=== PATIENT | female | born 1995 | race Two or more races ===

== ENCOUNTER 2018-03-16 13:00 | Inpatient (IN) | payer OTHER ==
[~2018-03-16] VITALS: Ht 162.6 cm; Wt 90.3 kg
[2018-03-16] MEDS ORDERED: LIDOCAINE 1% PF 30 ML VIAL. INJ PRN (13:15)
[2018-03-16] MEDS ORDERED: fentaNYL PF VIAL 100 MCG/2 ML VIAL IV PRN ×2 (13:15)
[2018-03-16] MEDS ORDERED: TERBUTALINE 1 MG/ML VIAL. SQ PRN (13:15)
[2018-03-16] MEDS ORDERED: BUTORPHANOL 2 MG/ML VIAL. IV PRN (13:15)
[2018-03-16] MEDS ORDERED: OXYTOCIN 30 UNIT/500 ML PREMIX 500 ML IV PRN ×3 (13:15→20:45)
[2018-03-16] MEDS ORDERED: 0.9 % SODIUM CHLORIDE 10 ML DISP.SYRIN. IV PRN ×2 (13:15→20:45)
[2018-03-16 13:52] LABS: BASO % 0 % (0-3); EOS # 0.1 x10^3/uL (0.0-0.7); EOS % 1 % (0-3); HEMATOCRIT 31.3 % (36.0-47.0); HEMOGLOBIN 10.3 g/dL (12.0-15.5); LYMPH # 1.4 x10^3/uL (1.0-4.8); LYMPH % 16 % (24-48); MEAN CORPUSCULAR HEMOGLOBIN 25 pg (25-35); MEAN CORPUSCULAR HGB CONC 33 g/dL (31-37); MEAN CORPUSCULAR VOLUME 76 fL (79-100); MONO # 0.6 x10^3/uL (0.0-1.1); MONO % 8 % (0-9); NEUT # 6.2 x10^3uL (1.8-7.7); NEUT % 75 % (31-73); PLATELET COUNT 163 x10^3/uL (140-400); RED BLOOD COUNT 4.09 x10^6/uL (3.50-5.40); RED CELL DISTRIBUTION WIDTH 15.2 % (11.5-14.5); WHITE BLOOD COUNT 8.3 x10^3/uL (4.0-11.0)
[2018-03-16 13:56] LABS: BILIRUBIN,URINE NEGATIVE (NEG); CLARITY,URINE CLEAR; COLOR,URINE YELLOW; NITRITE,URINE NEGATIVE (NEG); PROTEIN,URINE NEGATIVE (NEG-TRACE)
[2018-03-16] MEDS: IV RINGERS,LACTATED 1000ML 1,000 ML IV SCH ×2 (14:14→18:15)
--- NOTE | 2018-03-16 14:48 | PDOC1 ---
OB - History Hx of Present Care: Good Care Ultrasounds: Normal mid trimester US Obstetrical Complications: None Medical Complications: None Past Family/Social History * Past Medical, Surgical, Family and Obstetric Histories reviewed from chart. Rubella: Immune RPR/VDRL: Negative GBS Status: Negative HBsAG: Negative OB - Chief Complaint & HPI Date of Admission: Date of Admission: Mar 16, 2018 at 13:00 Chief Complaint/History : 3 Para: 2 EGA: 38 Reason for admission: active labor Admission Nurse Assessment Rev: Yes OB - Admission Exam Physical Exam HEENT: Normal Heart: Regular Rate Lungs: Clear Abdomen: Gravid, Non tender, Soft Extremities: Edema Reflexes: Normal Cervical Dilatation: 4cm Effacement: 75% Station: -3 Membranes: Intact Heart Rate: Normal Accelerations: Accelerations Present Decelerations: No decelerations Contractions on Admission: 6-10 Minutes Apart Text A: 38 wks IUP Active labor P: Admit for labor management. LUIZ ARCEO Jr, MD Mar 16, 2018 14:48
[2018-03-16 18:17] VITALS: BP 113/69
--- NOTE | 2018-03-16 20:40 | PDOC ---
VAGINAL DELIVERY DATE DATE: 03/16/18 TIME: 20:38 : 3 Para: 3 EGA: 38 VAGINAL DELIVERY: VTX VACCUM ASSISTED: No PLACENTA: Spontaneous 8/9 SEX: Male WEIGHT Weight [ pending ] Nuchal Cord: Yes, Times 2 Amniotic Fluid: Clear PAIN: Natural EPISIOTOMY: No EXTENSION: No EBL 400 ml COMPLICATIONS none CONDITION pt. stable Signs of Intrauterine Infectio: None Shoulder Dystocia: No LUIZ ARCEO Jr, MD Mar 16, 2018 20:40
[2018-03-16] MEDS ORDERED: ZOLPIDEM 5 MG TABLET. PO PRN (20:45)
[2018-03-16] MEDS ORDERED: HYDROCORTISONE 1% TOPICAL OINTMENT 30GM TUBE. TP PRN (20:45)
[2018-03-16] MEDS ORDERED: PHENYLEPH/MINERAL OIL/PETROLAT RECTAL OINTMENT 28GM TUBE. RC PRN (20:45)
[2018-03-16] MEDS ORDERED: IBUPROFEN 400 MG TABLET. PO PRN (20:45)
[2018-03-16] MEDS ORDERED: oxyCODONE/APAP 5/325 1 TAB TABLET PO PRN (20:45)
[2018-03-16] MEDS ORDERED: ACETAMINOPHEN 325 MG TABLET. PO PRN (20:45)
[2018-03-16] MEDS ORDERED: DOCUSATE SODIUM 100 MG CAPSULE. PO PRN (20:45)
[2018-03-16] MEDS ORDERED: MMR per PROTOCOL. MC PRN (20:45)
[2018-03-16] MEDS ORDERED: SIMETHICONE 80 MG TAB.CHEW PO PRN (20:45)
[2018-03-16] MEDS ORDERED: diphenhydrAMINE HCL 25 MG CAPSULE PO PRN (20:45)
[2018-03-16] MEDS ORDERED: MAG HYDROX/ALUMINUM HYD/SIMETH 30 ML ORAL.SUSP PO PRN (20:45)
[2018-03-16] MEDS ORDERED: BENZOCAINE 20% TOPICAL AEROSOL SPRAY 57GM CAN. TP PRN (20:45)
[2018-03-16] MEDS ORDERED: MAGNESIUM HYDROXIDE 2,400 MG/30 ML ORAL.SUSP. PO PRN (20:45)
[2018-03-16] MEDS: IBUPROFEN 400 MG TABLET. PO PRN (22:55)
--- NOTE | 2018-03-16 23:30 | NUR ---
Ambulated to bathroom. Pericare and teaching done. Able to void without any difficulty. Taken to room 333 via wheelchair. report and handoff to nurse.
[2018-03-17] VITALS: BP 116/67
[2018-03-17 03:20] VITALS: BP 101/65
[2018-03-17 06:20] VITALS: BP 110/62
[2018-03-17] MEDS: IBUPROFEN 400 MG TABLET. PO PRN (07:33)
[2018-03-17] MEDS ORDERED: FERROUS SULFATE 325 MG TABLET. PO SCH (08:00)
[2018-03-17 08:31] LABS: BASO # 0.1 x10^3/uL (0.0-0.2); BASO % 1 % (0-3); EOS # 0.1 x10^3/uL (0.0-0.7); EOS % 1 % (0-3); HEMATOCRIT 30.3 % (36.0-47.0); HEMOGLOBIN 10.2 g/dL (12.0-15.5); LYMPH % 19 % (24-48); MEAN CORPUSCULAR HEMOGLOBIN 26 pg (25-35); MEAN CORPUSCULAR HGB CONC 34 g/dL (31-37); MEAN CORPUSCULAR VOLUME 76 fL (79-100); MONO % 9 % (0-9); NEUT # 7.7 x10^3uL (1.8-7.7); NEUT % 71 % (31-73); PLATELET COUNT 163 x10^3/uL (140-400); RED BLOOD COUNT 3.97 x10^6/uL (3.50-5.40); RED CELL DISTRIBUTION WIDTH 15.5 % (11.5-14.5); WHITE BLOOD COUNT 10.9 x10^3/uL (4.0-11.0)
[2018-03-17 11:19] VITALS: BP 112/68
--- NOTE | 2018-03-17 14:28 | PDOC ---
Provider Note Provider Note Doing well VSS Uterus NTTP FU in AM ADIS HERNANDEZ MD Mar 17, 2018 14:28
[2018-03-17 17:00] VITALS: BP 106/66
[2018-03-17] MEDS ORDERED: DIPHTH,PERTUSS(ACELL),TET TOX 0.5 ML DISP.SYRIN. VAX IM ONE (18:45)
[2018-03-17 23:00] VITALS: BP 119/69
[2018-03-18] MEDS: IBUPROFEN 400 MG TABLET. PO PRN (05:20)
[2018-03-18 05:30] VITALS: BP 124/83
--- NOTE | 2018-03-18 08:25 | PDOC3 ---
OB DISCHARGE SUMMARY DATE OF ADMISSION: 03/16/18 DATE OF DISCHARGE: 03/18/18 REASON FOR ADMISSION: Onset of labor PROCEDURES: Ultrasound INTRAPARTUM PROCEDURES: Spontanous Vag Deliv PROCEDURES: None OPERATIONS: None DISCHARGE DIAGNOSIS: Term Delivered DISCHARGE INFORMATION: Activity, Diet HOSPITAL COURSE Unremarkable CONDITION AT DISCHARGE Stable ADIS HERNANDEZ MD Mar 18, 2018 08:25
[2018-03-18] MEDS ORDERED: NAPR-514 PO (08:27)
[2018-03-18] MEDS ORDERED: HYDR-3164 PO (08:27)
[2018-03-18 11:30] VITALS: BP 110/68
[2018-03-18 16:00] VITALS: BP 106/82
== END 2018-03-18 15:00 | disposition home or self-care (01) | DRG 807 ==
LOC: 3 SO LND 13:00 → 3 NORTH 23:26
PROVIDERS: ADMIT Obstetrics & Gynecology; ATTEND Obstetrics & Gynecology
PROC: 10E0XZZ Delivery of Products of Conception, External Approach (ICD-10-PCS; principal; 2018-03-16)
DX: O69.81X0 Labor and delivery complicated by cord around neck, without compression, not applicable or unspecified (principal); Z37.0 Single live birth; Z3A.38 38 weeks gestation of pregnancy
CPT/HCPCS: 36415; 81003; 85025; 86592; 86850; 86900; 86901; 90471; 90715; J3010; J7120